=== PATIENT | female | born 2000 | race Caucasian/White ===

== ENCOUNTER 2019-05-12 11:29 | Emergency (ER) | payer OTHER ==
[2019-05-12 12:35] VITALS: BP 114/73
--- NOTE | 2019-05-12 13:23 | UC ---
Laceration HPI - HPI Summary HPI Summary: 18 y/o female adolescent presents to the urgent care accompany by father c/o injury to right index and middle finger finger today at work. 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 She has a skin avulsion laceration in the lateral aspect of the Rt index finger. Bleeding stop w/ pressure. She has decrease ROM at the distal joint of the Rt index and she can move the middle finger w/o any difficulty. Pt denies numbness or tingling sensation over the Rt fingers, previous injury, SOB , chest pain,abdominal pain, N/v/d. Pt is UTD w/ all vaccines for her age. - History Of Current Complaint Chief Complaint: UCUpperExtremity Stated Complaint: RIGHT INDEX/MIDDLE FINGER INJURY Time Seen by Provider: 05/12/19 12:43 Hx Obtained From: Patient, Family/Travel Occupational Therapist - father Hx Last Menstrual Period: 04/16/19 Laceration Location: Finger - RT index and middle finger Mechanism Of Injury: Sharp Trauma Onset/Duration: Sudden Onset - around 10:30Am today, Lasting Hours - 2 hrs Severity: Moderate Pain Intensity: 8 Pain Scale Used: 0-10 Numeric Aggravating Factors: Movement, Other: - touch Related History: Occupational Injury, Dominant Hand Right - Allergies/Home Medications Allergies/Adverse Reactions: Allergies Allergy/AdvReac Type Severity Reaction Status Date / Time No Known Allergies Allergy Verified 05/12/19 12:35 Home Medications: Home Medications Norethindrone AC-Eth Estradiol [Loestrin 21 1.5-30 Tablet] 1 each PO DAILY 05/12 [History Confirmed 05/12/19] PMH/Surg Hx/FS Hx/Imm Hx Previously Healthy: Yes - Pt denies PMHX - Surgical History Surgical History: None - Family History Known Family History: Positive: None - Pt denies FmHx - Social History Occupation: Employed Full-time Lives: With Family Alcohol Use: Occasionally Substance Use Type: None Smoking Status (MU): Never Smoked Tobacco - Immunization History Hx Tetanus, Diphtheria Vaccination: Yes Vaccination Up to Date: Yes Review of Systems All Other Systems Reviewed And Are Negative: Yes Constitutional: Positive: Negative Skin: Positive: Other - laceration to the Rt index finger w/ a lift at work Eyes: Positive: Negative ENT: Positive: Negative Respiratory: Positive: Negative Cardiovascular: Positive: Negative Gastrointestinal: Positive: Negative Genitourinary: Positive: Negative Motor: Positive: Negative Neurovascular: Positive: Negative Musculoskeletal: Positive: Decreased ROM - RT index finger, Other: - RT index and middle finger pain s/p injury at work Neurological: Positive: Negative Psychological: Positive: Negative Is Patient Immunocompromised?: No Physical Exam - Summary Physical Exam Summary: Vital Signs Reviewed: Yes General: well developed, well nourished female adolescent sitting in the examining table w/o any apparent distress Eye Exam: Normal Eyes: Positive: Conjunctiva Clear - PERRLA, EOMI, fundi grossly normal ENT: Positive: Normal ENT inspection, Hearing grossly normal, Pharynx normal, TMs normal Neck: Positive: Supple, Nontender, No Lymphadenopathy Respiratory: Positive: Chest non-tender, Lungs clear, Normal breath sounds, No respiratory distress Cardiovascular: Positive: RRR, No Murmur, Pulses Normal, Brisk Capillary Refill Abdomen Description: Positive: Nontender, No Organomegaly, Soft. Negative: CVA Tenderness (R), CVA Tenderness (L) Bowel Sounds: Positive: Present Musculoskeletal: Positive: Strength Intact, No Edema,Rt Hand/Fingers: the R hand is without obvious asymmetry or deformity when compared to the L hand. mild swelling around dorsal PIPJ of the Rt middle finger and laceration of skin flap around laterla side of the RT index finger w/ tender ness to palaption and decrease ROM. No bony deformity. Normal cascade of fingers. Normal flexion and extension of fingers, except for #2 and 3rd phalanx due to pain. FDS and FDP intact against resistance. No focal fullness, throbbing pain, swelling of finger tip. Pulses and capillary refill WNL, positive reflexes and sensation intact Neurological: Positive: Alert, Muscle Tone Normal Psychological Exam: Normal Skin: Positive:Lateral aspect of the RT index DIPJ with a triangular skin avulsion flap about 1.7cm in size, non bleeding, no foreign body observed. mild tenderness to palpation,no ecchymosis around fingers. decrease ROM of the RT index DIPJ, sensation intact, capillary refill brisk, and pulses WNL. Triage Information Reviewed: Yes Vital Signs: Initial Vital Signs Temp 100.5 F 05/12/19 12:31 Pulse 56 05/12/19 12:31 Resp 16 05/12/19 12:31 BP 114/73 05/12/19 12:31 Pulse Ox 100 05/12/19 12:31 Laceration Repair - Laceration Repair 1 Description: Irregular - triangular shape superficial skin flap at the lateral aspect of the Rt index finger DIPJ Laceration Size After Repair: Length (cm) - 1.7 Modified For Repair: No Cleansing Completed Via Routine Prep: Yes Irrigation With Pressure Irrigation Device: Yes Closure Material: Skin Adhesive, SteriStrips - 4 Closure Method: Single Layer Suture Of: Skin Laceration Course/Dx - Course/Dx Course Of Treatment: 18 y/o female adolescent presents to the urgent care accompany by father c/o injury to right index and middle finger finger today at work. 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 She has a skin avulsion laceration in the lateral aspect of the Rt index finger. Bleeding stop w/ pressure. She has decrease ROM at the distal joint of the Rt index and she can move the middle finger w/o any difficulty. Pt denies numbness or tingling sensation over the Rt fingers, previous injury, SOB , chest pain,abdominal pain, N/v/d. Pt is UTD w/ all vaccines for her age. Hx obtained. Pt w/ Lateral aspect of the RT index DIPJ with a triangular skin avulsion flap about 1.7cm in size, non bleeding, no foreign body observed. mild tenderness to palpation,no ecchymosis around fingers. decrease ROM of the RT index DIPJ, sensation intact, capillary refill brisk, and pulses WNL on examination. LACERATION PROCEDURE NOTE: . Copious irrigation was done with saline and the wound explored. There was no FB or deep structure injury noted. wound cleaned w/ Iodine swabs. Laceration closed w/ skin adhesive and 4 steri- strips. Wound dressed w/ sterile gauze.The Pt tolerated the procedure well without adverse effects. Neurovascular intact and FROM of finger. RT index and middle finger X-rays ordered: IMPRESSION: No fracture of the right middle or index finger is noted as per radiologist. Probably a finger sprain. Pt's fingers immobilized with a finger splint and body tape both of them by me . Neurovascular intact after splint application by me. Pt advised RICE and take Motrin PO for pain. F/u with Orthopedic form sports medicine if not improvement of symptoms. father and Pt advised if any signs of infection develop to immediately return to the urgent care of PCP for further management and treatment. Pt understood and agreed and left the clinic ambulating A&Ox3. - Differential Dx - Laceration/Wound Differental Diagnoses: Abrasion, Avulsion, Dehiscence, Fracture, Laceration, Puncture Wound, Tendon Laceration, Other - fracture, sprain - Diagnosis Provider Diagnosis: Sprain of right index finger, Sprain of right middle finger, Laceration of right index finger Discharge - Sign-Out/Discharge Documenting (check all that apply): Patient Departure - D/C home All imaging exams completed and their final reports reviewed: Yes - Discharge Plan Condition: Stable Disposition: HOME Patient Education Materials: Laceration (ED), Finger Sprain (ED), Skin Adhesive Care (ED) Forms: *Work Release Referrals: Roddy TAPIA,Florian Paz [Primary Care Provider] - 3 Days [facility] [Provider Group] - 1 Week Additional Instructions: 1-Please apply Bacitrain oint 2X/day topical antibiotic over the wound after steri-strip fall off . Keep wound clean and dry 2-Take Ibuprofen or Tylenol PO q6-8hrs prn for pain or swelling. 3- If you develop fever or redness around your finger please return to the Urgent care for further management. 4-Please apply ice, keep your fingers immobilized with the splint. 5- Please f/u with Orthopedic from Sports Medicine or your PCP in 1 week is not improvement of symptoms for further evaluation and treatment. - Billing Disposition and Condition Condition: STABLE Disposition: Home - Attestation Statements Provider Attestation: I was available for consult. This patient was seen by the CAT[facility]. The patient was not presented to , seen by or examined by ma -Efrain Owens MD
== END 2019-05-12 14:01 | disposition home or self-care (01) ==
LOC: UCCORT 11:29
DX: S63.610A Unspecified sprain of right index finger, initial encounter (principal); S63.612A Unspecified sprain of right middle finger, initial encounter; S61.210A Laceration without foreign body of right index finger without damage to nail, initial encounter; W24.0XXA Contact with lifting devices, not elsewhere classified, initial encounter; Y92.89 Other specified places as the place of occurrence of the external cause; Y99.0 Civilian activity done for income or pay
CPT/HCPCS: 12001; 73140; 99201; 99203; G0463